=== PATIENT | female | born 1960 | race Caucasian/White ===

== ENCOUNTER 2019-02-02 07:37 | Day surgery (SDC) | payer BC ==
--- NOTE | 2019-01-26 12:14 | HP ---
PREOPERATIVE HISTORY AND PHYSICAL: DATE OF SURGERY/ADMISSION: 02/02/19 - OR [facility] DATE OF OFFICE VISION/ENCOUNTER: 01/18/19 ATTENDING SURGEON: Justine Pacheco MD.* (DICTATED BY SANJAY PHILIP) PROCEDURE: Right wrist carpal tunnel release. CHIEF COMPLAINT: Numbness and tingling, left hand. HISTORY OF PRESENT ILLNESS: This is a 59-year-old female who has had complaints of numbness and tingling in her left hand for over 20 years now. Over more recent years, the symptoms have progressively worsened. She had a nerve conduction study 20 years ago and again 5 years ago, which showed left carpal tunnel syndrome, at that time mild in nature. The patient reports since then the symptoms have worsened. She has tried wrist braces in the past, but these have not been very helpful. She had a right carpal tunnel release performed approximately 4 years ago and did very well with that. She is now interested in pursuing a left carpal tunnel release. PAST MEDICAL HISTORY: 1. Hypertension. 2. Hyperlipidemia. PAST SURGICAL HISTORY: 1. LEEP. 2. Right carpal tunnel release in 2014. 3. Tubal ligation. The patient has not had any anesthesia problems in the past. CURRENT MEDICATIONS: 1. Atenolol 25 mg daily. 2. B Complex daily. 3. Calcium daily. 4. Fish oil concentrate daily. 5. Fluvastatin sodium 20 mg daily. 6. Hydrochlorothiazide 25 mg daily. 7. Multivitamin. 8. Vitamin B complex. 9. Vitamin D3. ALLERGIES: CIPROFLOXACIN causes hives. FAMILY MEDICAL HISTORY: Heart disease, diabetes, cancer. 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 She is a former smoker. She quit at age 42. Prior to that, she smoked a pack to pack and a half per day for 20 years. She denies recreational drug use and does not drink alcohol. REVIEW OF SYSTEMS: Negative for general, cephalic, cardiovascular, respiratory , GI, , other musculoskeletal, integumentary, endocrine, neurologic, and hematologic symptoms. Infectious Disease: Negative for history of MRSA, hepatitis C, HIV. PHYSICAL EXAMINATION GENERAL: A well-developed, well-nourished 59-year-old female, in no acute distress. VITAL SIGNS: Height 5 feet 3 inches, weight 157 pounds, pulse rate is 62, blood pressure 122/64. HEENT: Normocephalic, atraumatic. Pupils are equal, round, and reactive to light and accommodation. Throat is clear. NECK: Supple. No palpable lymph nodes. PULMONARY: Lungs are clear to auscultation bilaterally. No wheezes, rales, or rhonchi. CARDIOVASCULAR: Regular rate and rhythm. S1, S2. No murmurs, rubs, or gallops. No edema. ABDOMEN: Positive bowel sounds. Soft, nontender. NEUROLOGICAL: Alert and oriented x3. Cranial nerves II through XII are intact. Sensation is intact to light touch. MUSCULOSKELETAL: On exam of her left hand, there is no visible thenar wasting, but she does have weakness with thumb abduction. She has a positive Phalen test of the wrist. Negative Tinel sign. She has good motion in her fingers and her wrist and sensation is intact throughout the hand. DIAGNOSTIC STUDIES: Previous EMG and nerve conduction study showed carpal tunnel syndrome on the left. IMPRESSION: As above. PLAN: The patient is scheduled to undergo a left wrist carpal tunnel release with Dr. Pacheco on 02/02/19. She will return to the office 10 days postop for followup and suture removal. A prescription for Ultracet was e-scribed to the patient's pharmacy for postoperative pain management. SANJAY PHILIP [id number]/[facility] #: [id number] [place]
[~2019-02-02 07:37] MED LIST: Acetaminophen TAB* 325 MG ONE; Acetaminophen TAB* 325 MG PO ONE; Buffered Lidocaine 1% SYRIN* 1 ML/SYRINGE INTRADERM ONE; Gabapentin CAP(*) 300 MG ONE; Gabapentin CAP(*) 300 MG PO ONE; Lactated Ringers 1000 ML Bag* 1,000 ML IV SCH
[2019-02-02] MEDS ORDERED: Lidocaine 1% INJ* 10 MG/ML 30 ML SDV ONE (07:50)
[2019-02-02] MEDS ORDERED: fentaNYL* 50 MCG/ML 2 ML VIAL (100 MCG VIAL) ONE (09:18)
[2019-02-02] MEDS ORDERED: Midazolam* 1 MG/ML 2 ML VIAL (2 MG) ONE (09:18)
[2019-02-02] MEDS ORDERED: Ondansetron INJ* 2 MG/ML VIAL IV PRN (09:32)
[2019-02-02] MEDS ORDERED: Naloxone* 0.4 MG/ML 1 ML VIAL IV PRN (09:32)
[2019-02-02] MEDS ORDERED: Propofol* 10 MG/ML 20 ML BTL ONE (09:38)
[2019-02-02] MEDS ORDERED: Lidocaine 2% PF * 5 ML VIAL ONE (09:38)
[2019-02-02 09:55] VITALS: BP 122/56
--- NOTE | 2019-02-02 13:21 | OP ---
DATE OF OPERATION: 02/02/19 [facility] DATE OF : 60 SURGEON: Justine Pacheco MD. SHADOWGRAPH OPERATOR: SANJAY Ibrahim. ANESTHESIA: Local MAC PRE-OP DIAGNOSIS: Left carpal tunnel syndrome POST-OP DIAGNOSIS: Left carpal tunnel syndrome OPERATIVE PROCEDURE: Left carpal tunnel release. ESTIMATED BLOOD LOSS: Zero. TOURNIQUET TIME: Approximately 10 minutes. INDICATIONS FOR PROCEDURE: Danuta is a 59-year-old woman with numbness and tingling in the median nerve distribution of her left hand. She presents for left carpal tunnel release. DESCRIPTION OF PROCEDURE: The patient was brought to the operating room, was given a sedation anesthetic and a local infiltration of 10 cc of 1% plain lidocaine in the palm of her left hand. Skin of her left hand and forearm was prepped and draped in the usual sterile fashion. The hand and forearm were exsanguinated and the tourniquet elevated to 250 mmHg. A longitudinal incision was made in the palm in the line with the ring finger. We dissected through the subcutaneous tissue down to the transverse carpal ligament. The ligament was divided sharply with a knife and then more proximally with the scissors. The nerve was dissected free from the surrounding tissue, and there is an area of moderate compression at the mid portion of the ligament. The wound was irrigated and the skin edges reapproximated with 4-0 nylon suture. The wound was dressed with Xeroform, 4x4, Webril, and an Nino wrap. The patient tolerated the procedure well and was brought to the recovery room in good condition. [id number]/[facility] #: [id number] [facility]
== END 2019-02-02 10:12 | disposition home or self-care (01) ==
LOC: OREAST 07:37
PROVIDERS: ATTEND Orthopaedic Surgery
DX: G56.02 Carpal tunnel syndrome, left upper limb (principal); I10 Essential (primary) hypertension; Z87.891 Personal history of nicotine dependence; E78.5 Hyperlipidemia, unspecified
CPT/HCPCS: A9270-GY; J2250; J2704; J3010